=== PATIENT | female | born 1955 | race Caucasian/White ===

== ENCOUNTER → 2016-05-19 | Outpatient (CLI) | payer OTHER | END | disposition home or self-care (01) | LOC: RAD.S 15:39 | DX: M79.661 Pain in right lower leg (principal); M79.662 Pain in left lower leg; M17.11 Unilateral primary osteoarthritis, right knee ==

== ENCOUNTER → 2016-05-28 | Outpatient (CLI) | payer OTHER | END | disposition home or self-care (01) | LOC: RAD.S 05-20 15:13 | DX: M79.604 Pain in right leg (principal); M79.605 Pain in left leg; M79.89 Other specified soft tissue disorders ==

== ENCOUNTER → 2016-06-17 | Outpatient (CLI) | payer OTHER | END | disposition home or self-care (01) | LOC: RAD.S 12:57 | DX: Z12.31 Encounter for screening mammogram for malignant neoplasm of breast (principal) ==